=== PATIENT | male | born 1955 | race Caucasian/White ===

== ENCOUNTER → 2018-12-14 | Outpatient (CLI) | payer MEDICARE, OTHER ==
[~2018-12-14] MED LIST: AMLO5 PO; ASCO500 PO; Antivert25 MG PO; Aspir 8181 MG; BUPR100 PO; CENTRUM SILVER1 EAC2 PO; CHOL10002 PO; FISH1000 PO; HYDPAM25 PO; HYDR1TAB94 PO; LORA1 PO; Lamictal200 MG PO; MOMENI; OSTEO BI-FLEX1 EAC2 PO; PANT40 PO; SILD50TA PO; TRAZ50 PO
[2018-12-14 17:15] LABS: Campylobacter Sp Not Detected (NOT DETECT)
[2018-12-14 17:16] LABS: Adenovirus F 40/41 Not Detected (NOT DETECT); Astrovirus Not Detected (NOT DETECT); Cryptosporidium Not Detected (NOT DETECT); Cyclospora Cayetanensis Not Detected (NOT DETECT); E. Coli O157 Not Detected (NOT DETECT); Entamoeba Histolytica Not Detected (NOT DETECT); Enteroaggregative E. coli-EAEC Not Detected (NOT DETECT); Enteropathogenic E. coli-EPEC Not Detected (NOT DETECT); Enterotoxigenic E. coli-ETEC Not Detected (NOT DETECT); Giardia Lamblia Not Detected (NOT DETECT); Norovirus GI/GII Detected (NOT DETECT); Plesiomonas Shigelloides Not Detected (NOT DETECT); Rotavirus A Not Detected (NOT DETECT); Salmonella Sp Not Detected (NOT DETECT); Sapovirus Not Detected (NOT DETECT); Shiga Toxin-prod E. coli-STEC Not Detected (NOT DETECT); Shigella/Enteroin E. coli-EIEC Not Detected (NOT DETECT); Vibrio Cholerae Not Detected (NOT DETECT); Vibrio Sp Not Detected (NOT DETECT); Yersinia Enterocolitica Not Detected (NOT DETECT)
== END | disposition home or self-care (01) ==
LOC: LAB EV 12:00
PROVIDERS: Physician Assistant
DX: R19.7 Diarrhea, unspecified (principal)
CPT/HCPCS: 0097U

== ENCOUNTER 2019-12-01 18:46 | Emergency (ER) | payer MEDICARE, OTHER ==
[~2019-12-01] VITALS: Ht 177.8 cm; Wt 97.5 kg
[2019-12-01] MEDS ORDERED: METR500 PO (19:58)
[2019-12-01] MEDS ORDERED: CEFU250T47 PO (19:58)
== END 2019-12-01 20:15 | disposition home or self-care (01) ==
LOC: ER 18:46
DX: K57.32 Diverticulitis of large intestine without perforation or abscess without bleeding (principal); Z88.0 Allergy status to penicillin; Z88.2 Allergy status to sulfonamides; Z88.8 Allergy status to other drugs, medicaments and biological substances; Z91.048 Other nonmedicinal substance allergy status; Z79.899 Other long term (current) drug therapy; N18.3 Chronic kidney disease, stage 3 (moderate)
CPT/HCPCS: 74176; 80053; 85025; 99284-25; A9270-GY

== ENCOUNTER → 2020-03-14 | Outpatient (CLI) | payer MEDICARE, OTHER ==
[~2020-03-14] MED LIST changes: +CEFU250T47 PO; +METR500 PO
[2020-03-14 11:59] LABS: BASOPHILS ABSOLUTE AUTO 0.03 K/mm3 (0.00-0.23); BASOPHILS PERCENT AUTO 1 % (0-2); EOSINOPHILS ABSOLUTE AUTO 0.14 K/mm3 (0.00-0.68); EOSINOPHILS PERCENT AUTO 2 % (0-6); Hematocrit 41.4 % (37.0-53.0); Hemoglobin 13.7 g/dL (13.5-17.5); IMMATURE GRAN ABSOLUTE AUTO 0.01 K/mm3 (0.00-0.10); IMMATURE GRAN PERCENT AUTO 0 % (0-1); LYMPHOCYTES ABSOLUTE AUTO 2.09 K/mm3 (0.84-5.20); LYMPHOCYTES PERCENT AUTO 35 % (21-46); MONOCYTES ABSOLUTE AUTO 0.43 K/mm3 (0.16-1.47); MONOCYTES PERCENT AUTO 7 % (4-13); Mean Corpuscular HGB 30.3 pg (26.0-34.0); Mean Corpuscular HGB Conc 33.1 g/dL (31.5-36.5); Mean Corpuscular Volume 92 fL (80-100); Mean Platelet Volume 10.5 fL (9.1-12.4); NEUTROPHILS ABSOLUTE AUTO 3.34 K/mm3 (1.96-9.15); NEUTROPHILS PERCENT AUTO 55 % (41-73); Platelet Count 267 K/mm3 (150-400); RDW Coefficient Variation 13.3 % (11.7-14.2); RDW Standard Deviation 44.8 fL (35.1-46.3); Red Blood Cell Count 4.52 M/mm3 (4.30-5.90); White Blood Cell Count 6.04 K/mm3 (4.00-11.30)
[2020-03-14 12:16] LABS: Alanine Aminotransfer (ALT/SGP 30 U/L (12-78); Albumin, Blood 3.5 g/dL (3.4-5.0); Alk Phos 80 U/L (40-126); Anion Gap 8 mmol/L (6-16); Aspartate Aminotrans (AST/SGOT 19 U/L (12-37); Bilirubin, Total 0.7 mg/dL (0.1-1.0); Blood Urea Nitrogen 18 mg/dL (8-24); Bun/Creatinine Ratio 14.6 (12.0-20.0); CO2, Blood 27 mmol/L (21-32); Calcium, Blood 8.8 mg/dL (8.5-10.1); Chloride, Blood 105 mmol/L (98-108); Creatinine, Blood 1.23 mg/dL (0.60-1.20); Globulin, Blood 3.5 g/dL (2.2-4.0); Glomerular Filtration Rate 59 (60-); Glucose, Blood 88 mg/dL (70-99); Potassium, Blood 3.9 mmol/L (3.5-5.5); Sodium, Blood 140 mmol/L (136-145)
[2020-03-14 12:17] LABS: Troponin I <0.017 ng/mL (0.000-0.040)
== END | disposition home or self-care (01) ==
LOC: LAB EV 11:51 → LAB SHORT 11:51
PROVIDERS: Physician Assistant
DX: R07.89 Other chest pain (principal)
CPT/HCPCS: 80053; 84484; 85025

== ENCOUNTER 2020-03-20 15:36 | Emergency (ER) | payer OTHER, MEDICARE ==
[~2020-03-20] VITALS: Ht 177.8 cm; Wt 96.6 kg
[2020-03-20 16:17] LABS: BASOPHILS ABSOLUTE AUTO 0.04 K/mm3 (0.00-0.23); BASOPHILS PERCENT AUTO 1 % (0-2); EOSINOPHILS ABSOLUTE AUTO 0.15 K/mm3 (0.00-0.68); EOSINOPHILS PERCENT AUTO 2 % (0-6); Hemoglobin 14.3 g/dL (13.5-17.5); IMMATURE GRAN ABSOLUTE AUTO 0.03 K/mm3 (0.00-0.10); IMMATURE GRAN PERCENT AUTO 0 % (0-1); LYMPHOCYTES ABSOLUTE AUTO 2.16 K/mm3 (0.84-5.20); LYMPHOCYTES PERCENT AUTO 30 % (21-46); MONOCYTES ABSOLUTE AUTO 0.44 K/mm3 (0.16-1.47); MONOCYTES PERCENT AUTO 6 % (4-13); Mean Corpuscular HGB 30.1 pg (26.0-34.0); Mean Corpuscular HGB Conc 32.5 g/dL (31.5-36.5); Mean Corpuscular Volume 93 fL (80-100); Mean Platelet Volume 10.5 fL (9.1-12.4); NEUTROPHILS ABSOLUTE AUTO 4.46 K/mm3 (1.96-9.15); NEUTROPHILS PERCENT AUTO 61 % (41-73); Platelet Count 284 K/mm3 (150-400); RDW Coefficient Variation 13.1 % (11.7-14.2); RDW Standard Deviation 44.7 fL (35.1-46.3); Red Blood Cell Count 4.75 M/mm3 (4.30-5.90); White Blood Cell Count 7.28 K/mm3 (4.00-11.30)
[2020-03-20 16:48] LABS: Alanine Aminotransfer (ALT/SGP 29 U/L (12-78); Albumin, Blood 3.4 g/dL (3.4-5.0); Alk Phos 91 U/L (50-136); Anion Gap 7 mmol/L (6-16); Aspartate Aminotrans (AST/SGOT 14 U/L (12-37); Bilirubin, Total 0.5 mg/dL (0.1-1.0); Blood Urea Nitrogen 14 mg/dL (8-24); Bun/Creatinine Ratio 11.9 (12.0-20.0); CO2, Blood 26 mmol/L (21-32); Calcium, Blood 8.8 mg/dL (8.5-10.1); Chloride, Blood 111 mmol/L (98-108); Creatinine, Blood 1.18 mg/dL (0.60-1.20); Globulin, Blood 3.4 g/dL (2.2-4.0); Glomerular Filtration Rate >60 (60-); Glucose, Blood 98 mg/dL (70-99); Potassium, Blood 4.1 mmol/L (3.5-5.5); Sodium, Blood 144 mmol/L (136-145); Total Protein, Blood 6.8 g/dL (6.4-8.2)
[2020-03-20] MEDS ORDERED: CYCL0.05OP BOTHEYES (18:08)
[2020-03-20] MEDS ORDERED: AZELASTINE137 MCG/03 (18:09)
[2020-03-20] MEDS ORDERED: NORTRIPTYLINE H10 M2 PO (18:09)
== END 2020-03-20 21:06 | disposition short-term general hospital (02) ==
LOC: ER 15:36
PROVIDERS: Emergency Medicine
DX: H53.9 Unspecified visual disturbance (principal); N18.30 Chronic kidney disease, stage 3 unspecified; Z20.828 Contact with and (suspected) exposure to other viral communicable diseases; Z88.0 Allergy status to penicillin; Z88.1 Allergy status to other antibiotic agents; Z88.2 Allergy status to sulfonamides; Z91.09 Other allergy status, other than to drugs and biological substances; Z79.899 Other long term (current) drug therapy; Z87.891 Personal history of nicotine dependence
CPT/HCPCS: 36415; 80053; 85025; 93005; 93010; 99285-25; U0004

== ENCOUNTER 2020-03-25 10:47 | Emergency (ER) | payer OTHER, MEDICARE ==
[~2020-03-25] VITALS: Ht 177.8 cm; Wt 96.6 kg
[~2020-03-25 10:47] MED LIST changes: +AZELASTINE137 MCG/03; +CYCL0.05OP BOTHEYES; +NORTRIPTYLINE H10 M2 PO
[2020-03-25 11:45] LABS: BASOPHILS ABSOLUTE AUTO 0.02 K/mm3 (0.00-0.23); BASOPHILS PERCENT AUTO 0 % (0-2); EOSINOPHILS ABSOLUTE AUTO 0.15 K/mm3 (0.00-0.68); EOSINOPHILS PERCENT AUTO 2 % (0-6); Hematocrit 44.2 % (37.0-53.0); Hemoglobin 14.4 g/dL (13.5-17.5); IMMATURE GRAN ABSOLUTE AUTO 0.01 K/mm3 (0.00-0.10); IMMATURE GRAN PERCENT AUTO 0 % (0-1); LYMPHOCYTES ABSOLUTE AUTO 2.01 K/mm3 (0.84-5.20); LYMPHOCYTES PERCENT AUTO 31 % (21-46); MONOCYTES ABSOLUTE AUTO 0.42 K/mm3 (0.16-1.47); MONOCYTES PERCENT AUTO 6 % (4-13); Mean Corpuscular HGB 30.1 pg (26.0-34.0); Mean Corpuscular HGB Conc 32.6 g/dL (31.5-36.5); Mean Corpuscular Volume 93 fL (80-100); NEUTROPHILS ABSOLUTE AUTO 3.93 K/mm3 (1.96-9.15); NEUTROPHILS PERCENT AUTO 60 % (41-73); RDW Coefficient Variation 13.2 % (11.7-14.2); RDW Standard Deviation 44.5 fL (35.1-46.3); Red Blood Cell Count 4.78 M/mm3 (4.30-5.90); White Blood Cell Count 6.54 K/mm3 (4.00-11.30)
[2020-03-25 11:58] LABS: Mean Platelet Volume 10.7 fL (9.1-12.4)
[2020-03-25 12:00] LABS: Alanine Aminotransfer (ALT/SGP 30 U/L (12-78); Albumin, Blood 3.7 g/dL (3.4-5.0); Albumin/Globulin Ratio 1.1 (0.8-1.8); Alk Phos 94 U/L (50-136); Anion Gap 5 mmol/L (6-16); Aspartate Aminotrans (AST/SGOT 26 U/L (12-37); Bilirubin, Total 0.7 mg/dL (0.1-1.0); Blood Urea Nitrogen 18 mg/dL (8-24); Bun/Creatinine Ratio 14.3 (12.0-20.0); CO2, Blood 27 mmol/L (21-32); Chloride, Blood 109 mmol/L (98-108); Creatinine, Blood 1.26 mg/dL (0.60-1.20); Globulin, Blood 3.5 g/dL (2.2-4.0); Glomerular Filtration Rate >60 (60-); Glucose, Blood 88 mg/dL (70-99); International Normalized Ratio 0.93; Potassium, Blood 4.3 mmol/L (3.5-5.5); Sodium, Blood 141 mmol/L (136-145); Total Protein, Blood 7.2 g/dL (6.4-8.2)
[2020-03-25 12:26] LABS: Platelet Count 222 K/mm3 (150-400)
[2020-03-25 12:30] LABS: Source, Urine Clean Catch
[2020-03-25 12:38] LABS: Bilirubin, Urine Neg (Neg); Blood, Urine Neg (Neg); Glucose Qualitative, Urine Neg (Neg); Ketones, Urine Neg (Neg); Leukocyte Esterase, Urine Neg (Neg); Nitrite, Urine Neg (Neg); Protein, Urine Neg (Neg); Urobilinogen, Urine NORM (Normal)
[2020-03-25 12:39] LABS: Appearance, Urine Clear (Clear); Color, Urine Yellow (P-Yellow)
== END 2020-03-25 14:12 | disposition home or self-care (01) ==
LOC: ER 10:47
PROVIDERS: Emergency Medicine
DX: H53.8 Other visual disturbances (principal); R20.0 Anesthesia of skin; N18.30 Chronic kidney disease, stage 3 unspecified; Z88.0 Allergy status to penicillin; Z88.1 Allergy status to other antibiotic agents; Z88.2 Allergy status to sulfonamides; Z91.09 Other allergy status, other than to drugs and biological substances; Z79.899 Other long term (current) drug therapy; Z87.891 Personal history of nicotine dependence
CPT/HCPCS: 36415; 80053; 81003; 82947; 85025; 85610; 85730; 93005; 93010; 99284-25

== ENCOUNTER 2020-06-04 16:37 | Emergency (ER) | payer MEDICARE, OTHER ==
[~2020-06-04] VITALS: Ht 170.2 cm; Wt 98.0 kg
[2020-06-04 17:44] LABS: BASOPHILS ABSOLUTE AUTO 0.03 K/mm3 (0.00-0.23); BASOPHILS PERCENT AUTO 0 % (0-2); EOSINOPHILS ABSOLUTE AUTO 0.21 K/mm3 (0.00-0.68); EOSINOPHILS PERCENT AUTO 2 % (0-6); Hematocrit 38.8 % (37.0-53.0); Hemoglobin 12.7 g/dL (13.5-17.5); IMMATURE GRAN ABSOLUTE AUTO 0.02 K/mm3 (0.00-0.10); IMMATURE GRAN PERCENT AUTO 0 % (0-1); LYMPHOCYTES ABSOLUTE AUTO 2.37 K/mm3 (0.84-5.20); LYMPHOCYTES PERCENT AUTO 28 % (21-46); MONOCYTES PERCENT AUTO 7 % (4-13); Mean Corpuscular HGB 30.3 pg (26.0-34.0); Mean Corpuscular HGB Conc 32.7 g/dL (31.5-36.5); Mean Corpuscular Volume 93 fL (80-100); Mean Platelet Volume 10.5 fL (9.1-12.4); NEUTROPHILS ABSOLUTE AUTO 5.36 K/mm3 (1.96-9.15); NEUTROPHILS PERCENT AUTO 63 % (41-73); Platelet Count 273 K/mm3 (150-400); RDW Coefficient Variation 13.1 % (11.7-14.2); RDW Standard Deviation 43.8 fL (35.1-46.3); Red Blood Cell Count 4.19 M/mm3 (4.30-5.90); White Blood Cell Count 8.59 K/mm3 (4.00-11.30)
[2020-06-04 18:01] LABS: International Normalized Ratio 0.96; Prothrombin Time Results 10.3 Sec (9.7-11.5)
[2020-06-04 18:04] LABS: Albumin, Blood 3.4 g/dL (3.4-5.0); Albumin/Globulin Ratio 1.1 (0.8-1.8); Bilirubin, Total 0.7 mg/dL (0.1-1.0); Bun/Creatinine Ratio 15.5 (12.0-20.0); Calcium, Blood 8.9 mg/dL (8.5-10.1); Creatinine, Blood 1.29 mg/dL (0.60-1.20); Globulin, Blood 3.2 g/dL (2.2-4.0); Total Protein, Blood 6.6 g/dL (6.4-8.2)
== END 2020-06-04 19:53 | disposition home or self-care (01) ==
LOC: ER 16:37
PROVIDERS: Physician Assistant
DX: G45.9 Transient cerebral ischemic attack, unspecified (principal); N18.30 Chronic kidney disease, stage 3 unspecified; Z88.0 Allergy status to penicillin; Z88.2 Allergy status to sulfonamides; Z88.1 Allergy status to other antibiotic agents; Z91.09 Other allergy status, other than to drugs and biological substances; Z79.899 Other long term (current) drug therapy; Z87.891 Personal history of nicotine dependence
CPT/HCPCS: 70450; 80053; 82947; 85025; 85610; 93005; 93010; 96374; 99284-25; J1885

== ENCOUNTER 2023-06-14 10:17 | Observation (INO) | payer MEDICARE, OTHER ==
[~2023-06-14] VITALS: Ht 177.8 cm; Wt 97.5 kg
[~2023-06-14 10:17] MED LIST changes: +ALBU90OI INH; +C COMPLEX1000 M1 PO; +FAMO40 PO; +KRILL OIL500 MG PO; +LAMO100 PO; +NASACORT10.8 ML; +Tessalon200 MG PO; +VITAMIN D310 MC4 PO; +ZYRTEC10 M2 PO
[2023-06-14 10:41] LABS: BASOPHILS ABSOLUTE AUTO 0.04 K/mm3 (0.00-0.23); BASOPHILS PERCENT AUTO 1 % (0-2); EOSINOPHILS ABSOLUTE AUTO 0.22 K/mm3 (0.00-0.68); EOSINOPHILS PERCENT AUTO 3 % (0-6); Hematocrit 45.8 % (37.0-53.0); Hemoglobin 15.6 g/dL (13.5-17.5); IMMATURE GRAN ABSOLUTE AUTO 0.02 K/mm3 (0.00-0.10); IMMATURE GRAN PERCENT AUTO 0 % (0-1); LYMPHOCYTES ABSOLUTE AUTO 2.72 K/mm3 (0.84-5.20); LYMPHOCYTES PERCENT AUTO 38 % (21-46); MONOCYTES ABSOLUTE AUTO 0.66 K/mm3 (0.16-1.47); MONOCYTES PERCENT AUTO 9 % (4-13); Mean Corpuscular HGB 31.7 pg (26.0-34.0); Mean Corpuscular HGB Conc 34.1 g/dL (31.5-36.5); Mean Corpuscular Volume 93 fL (80-100); Mean Platelet Volume 10.5 fL (9.1-12.4); NEUTROPHILS ABSOLUTE AUTO 3.51 K/mm3 (1.96-9.15); NEUTROPHILS PERCENT AUTO 49 % (41-73); Platelet Count 273 K/mm3 (150-400); RDW Coefficient Variation 12.4 % (11.7-14.2); RDW Standard Deviation 42.7 fL (35.1-46.3); Red Blood Cell Count 4.92 M/mm3 (4.30-5.90); White Blood Cell Count 7.17 K/mm3 (4.00-11.30)
[2023-06-14 11:00] LABS: Albumin, Blood 3.6 g/dL (3.4-5.0); Albumin/Globulin Ratio 1.1 (0.8-1.8); Bilirubin, Total 0.8 mg/dL (0.1-1.0); Bun/Creatinine Ratio 10.5 (12.0-20.0); Calcium, Blood 8.9 mg/dL (8.5-10.1); Creatinine, Blood 1.52 mg/dL (0.60-1.20); Globulin, Blood 3.4 g/dL (2.2-4.0)
[2023-06-14 14:25] VITALS: BP 177/84
[2023-06-14] MEDS ORDERED: DULERA 100 MCG/13 GM INH (14:54)
[2023-06-14] MEDS ORDERED: KRILL OIL500 MG PO (14:56)
[2023-06-14 16:24] VITALS: BP 170/92
--- NOTE | 2023-06-14 16:30 | NUR ---
ADMISSION/SHIFT SUMMARY NOTE PT IS ALERT AND ORIENTED X 4, HE IS INDEPENDENT AT BASELINE AND REPORTS BEING VERY ACTIVE. SBP NOTED TO BE 170-180, NITRO PASTE GIVEN PER DR. PATTERSON ORDERS TO ASSIST IN DECREASING BP, WILL CONTINUE TO MONITOR. PT DENIED FEELINGS OF CHEST PAIN/PRESSURE UPON ARRIVAL, HE REPORTED FEELING MINIMAL LIGHTHEADEDNESS UPON AMBULATING FROM ED BED TO PCU BED. HE DENIES FEELINGS OF NAUSEA/VOMITTING AT THIS TIME. HE REPORTED SOB IS BASELINE FEELING. HIS COLTEN IS CURRENTLY AT BEDSIDE. PT ALSO REPORTED HX OF ANXIETY AND PTSD ALONG WITH DAILY ALCOHOL CONSUMPTION OF 1-2 BEVERAGES PER DAY. HE WAS EDUCATED BY THIS RN REGARDING ALCOHOL WITHDRAWL AND STATED THAT HE "DOESN'T DRINK ENOUGH TO WITHDRAWAL." HR IS SINUS RYTHM 60'S PER TELE MONITORING. CALL LIGHT W/IN REACH.
[2023-06-14 16:38] VITALS: BP 176/93
[2023-06-14 17:00] VITALS: BP 147/66
[2023-06-14 20:16] VITALS: BP 146/87
--- NOTE | 2023-06-14 21:00 | NUR ---
ATTEMPTED TO GET UPDATED MED LIST FROM PATIENT. PT DENIES TAKING ANY BP MEDS, CLAIMS HE MANAGES HIS BP VIA DIET AND EXERCISE. HE IS UNSURE WHAT HE USED TO TAKE BUT CLAIMS IT MADE HIM FEEL BAD. HE BELIEVES HIS CAROTID ARTERY IS CAUSING HIS S/SX. RECOMMEND CONSULT WITH CARDIOLOGY PER PT REQUEST. PT KEEPS LOG OF BP AND STATES IT HAS BEEN GOOD.
[2023-06-14] MEDS ORDERED: TRAZ50 PO (21:08)
[2023-06-14 22:40] VITALS: BP 175/97
[2023-06-15 03:26] VITALS: BP 150/93
[2023-06-15 04:23] LABS: Anion Gap 4 mmol/L (6-16); Blood Urea Nitrogen 18 mg/dL (8-24); Bun/Creatinine Ratio 13.7 (12.0-20.0); CHOL/HDL RATIO 3.9; CO2, Blood 24 mmol/L (21-32); Calcium, Blood 8.7 mg/dL (8.5-10.1); Chloride, Blood 111 mmol/L (98-108); Cholesterol 208 mg/dL (50-200); Creatinine, Blood 1.31 mg/dL (0.60-1.20); Glomerular Filtration Rate 59 (60-); Glucose, Blood 118 mg/dL (70-99); HDL Cholesterol 53 mg/dL (>39); LDL/HDL RATIO 2.5; Low Density Lipoprotein Chol 131 mg/dL (0-110); Potassium, Blood 4.2 mmol/L (3.5-5.5); Sodium, Blood 139 mmol/L (136-145); Triglycerides 121 mg/dL (30-160); Very Low Density Lipoprot Chol 24 mg/dL (6-32)
--- NOTE | 2023-06-15 05:23 | NUR ---
END OF SHIFT NOTE: PT A/OX4 AND IND IN ROOM. HIS HR HAS BEEN NSR/SB T/0 SHIFT. HE DENIES CHEST PAIN/PRESSURE. WHEN AWAKE HE IS ON RA WITH SPO2 >90% WHEN SLEEPING HE WEARS A CPAP. PT COMPAINED OF HEADACHE AND WAS MEDICATED PER JUL. HIS HOME MED REC WAS UPDATED TO REFLECT HIS CURRENT MEDICATIONS. PT CALLS APPROPRIATELY TO MAKE NEEDS KNOWN. CALL LIGHT W/IN REACH AND BED IN LOWEST POSITION.
[2023-06-15 08:55] VITALS: BP 168/79
[2023-06-15 09:48] VITALS: BP 144/82
[2023-06-15 10:59] VITALS: BP 140/75
[2023-06-15] MEDS ORDERED: AMLO10 PO (12:54)
[2023-06-15] MEDS ORDERED: PRAV20 PO (12:54)
[2023-06-15 14:21] VITALS: BP 160/75
--- NOTE | 2023-06-15 14:39 | NUR ---
ASSUMED CARE OF PT AT [address] WERE PLANNING A POSSIBLE STRESS TEST TODAY, BUT THE ATTENDING DOCTOR, DR TAYLOR, DECIDED PT COULD FOLLOW UP WITH HIS DOCTOR AN OUTPT FOR ONE. PT C.O HEADACHE TODAY, BUT DID NOT REQUIRE MEDICATIONS. SEE DOCUMENTED VS AND ASSESSMENT. PT A&OX4, INDEPENDENT IN ROOM. PT'S AT BEDSIDE FOR DISCHARGE TEACHING INCLUDING MEDICATION LIST, NEW MEDICATIONS, FOLLOW UP APPOINTMENTS, AND EDUCATION. ZIO PATCH APPLIED BY [facility] STAFF AND EDUCATION PROVIDED BY THEM. PT AND VERBALIZED UNDERSTANDING OF ALL TEACHING AND HAD NO FURTHER QUESTIONS OR CONCERNS AT THIS TIME. IV TO LAC REMOVED, SITE WNL. PT IS FULLY AMBULATORY AND CHOOSES TO WALK OUT OF THE HOSPITAL IN THE CARE OF HIS . ALL BELONGINGS SENT HOME WITH PT, NO FURTHER DISCHARGE NEEDS IDENTIFIED.
== END 2023-06-15 14:35 | disposition home or self-care (01) ==
LOC: ER 10:17 → PCU 10:18
PROVIDERS: Emergency Medicine; Student in an Organized Health Care Education/Training Program; ADMIT Internal Medicine
DX: I24.9 Acute ischemic heart disease, unspecified (principal); J45.909 Unspecified asthma, uncomplicated; F43.12 Post-traumatic stress disorder, chronic; I12.9 Hypertensive chronic kidney disease with stage 1 through stage 4 chronic kidney disease, or unspecified chronic kidney disease; N18.30 Chronic kidney disease, stage 3 unspecified; E78.5 Hyperlipidemia, unspecified; I35.8 Other nonrheumatic aortic valve disorders; G47.33 Obstructive sleep apnea (adult) (pediatric); Z88.0 Allergy status to penicillin; Z88.1 Allergy status to other antibiotic agents; Z88.5 Allergy status to narcotic agent; Z88.2 Allergy status to sulfonamides
CPT/HCPCS: 36415; 71045; 80048; 80053; 80061; 84484; 85025; 93005; 93010; 93246; 93306; 94640; 94660; 94664; 94762; 99285-25; A9270; G0378

== ENCOUNTER 2024-08-01 06:46 | Emergency (ER) | payer OTHER ==
[~2024-08-01] VITALS: Ht 177.8 cm; Wt 98.4 kg
[~2024-08-01 06:46] MED LIST changes: +AMLO10 PO; +DICLOFENAC SOD100 GM TOP; +DOC250 PO; +DULERA 100 MCG/13 GM INH; +OLME5TAB PO; +PRAV20 PO; +SENNA LAXATIVE8.6 MG PO
[2024-08-01 07:30] LABS: BASOPHILS ABSOLUTE AUTO 0.04 K/mm3 (0.00-0.23); BASOPHILS PERCENT AUTO 1 % (0-2); EOSINOPHILS PERCENT AUTO 5 % (0-6); Hematocrit 41.2 % (37.0-53.0); Hemoglobin 14.2 g/dL (13.5-17.5); IMMATURE GRAN ABSOLUTE AUTO 0.02 K/mm3 (0.00-0.10); IMMATURE GRAN PERCENT AUTO 0 % (0-1); LYMPHOCYTES ABSOLUTE AUTO 2.36 K/mm3 (0.84-5.20); LYMPHOCYTES PERCENT AUTO 40 % (21-46); MONOCYTES PERCENT AUTO 8 % (4-13); Mean Corpuscular HGB Conc 34.5 g/dL (31.5-36.5); Mean Corpuscular Volume 96 fL (80-100); Mean Platelet Volume 10.8 fL (9.1-12.4); NEUTROPHILS ABSOLUTE AUTO 2.76 K/mm3 (1.96-9.15); NEUTROPHILS PERCENT AUTO 46 % (41-73); Platelet Count 248 K/mm3 (150-400); RDW Coefficient Variation 12.7 % (11.7-14.2); RDW Standard Deviation 44.9 fL (35.1-46.3); White Blood Cell Count 5.98 K/mm3 (4.00-11.30)
[2024-08-01 07:34] LABS: Albumin, Blood 3.4 g/dL (3.4-5.0); Albumin/Globulin Ratio 1.1 (0.8-1.8); Bun/Creatinine Ratio 12.2 (12.0-20.0); Calcium, Blood 8.4 mg/dL (8.5-10.1); Creatinine, Blood 1.23 mg/dL (0.60-1.20); Globulin, Blood 3.1 g/dL (2.2-4.0); Potassium, Blood 4.3 mmol/L (3.5-5.5); Total Protein, Blood 6.5 g/dL (6.4-8.2)
[2024-08-01] MEDS ORDERED: CYCL10 PO (10:47)
[2024-08-01 11:32] VITALS: BP 140/85
== END 2024-08-01 11:33 | disposition home or self-care (01) ==
LOC: ER 06:46
PROVIDERS: Emergency Medicine
DX: M50.30 Other cervical disc degeneration, unspecified cervical region (principal); R07.9 Chest pain, unspecified; I12.9 Hypertensive chronic kidney disease with stage 1 through stage 4 chronic kidney disease, or unspecified chronic kidney disease; N18.30 Chronic kidney disease, stage 3 unspecified; J45.909 Unspecified asthma, uncomplicated; K21.9 Gastro-esophageal reflux disease without esophagitis; Z87.891 Personal history of nicotine dependence; Z88.0 Allergy status to penicillin; Z88.2 Allergy status to sulfonamides; Z16.23 Resistance to quinolones and fluoroquinolones; Z91.048 Other nonmedicinal substance allergy status; Z88.1 Allergy status to other antibiotic agents; Z88.9 Allergy status to unspecified drugs, medicaments and biological substances; Z79.1 Long term (current) use of non-steroidal anti-inflammatories (NSAID); Z79.899 Other long term (current) drug therapy; Z79.84 Long term (current) use of oral hypoglycemic drugs; Z79.621 Long term (current) use of calcineurin inhibitor
CPT/HCPCS: 70498; 71275; 74174; 80053; 84484; 85025; 93005; 93010; 99285-25; Q9967

== ENCOUNTER 2024-09-21 16:50 | Inpatient (IN) | payer OTHER, BC ==
[~2024-09-21] VITALS: Ht 175.3 cm; Wt 96.0 kg
[~2024-09-21 16:50] MED LIST changes: +CAVERJECT20 MCG INJ; +CYCL10 PO; +OXYC10TA19 PO; +SENN187 PO; +THERA-D2000 UNIT PO; +VITAMIN E180 MG PO; +osteo-biflex PO
[2024-09-21 17:32] LABS: BASOPHILS ABSOLUTE AUTO 0.03 K/mm3 (0.00-0.23); BASOPHILS PERCENT AUTO 0 % (0-2); EOSINOPHILS PERCENT AUTO 2 % (0-6); Hematocrit 37.3 % (37.0-53.0); Hemoglobin 12.7 g/dL (13.5-17.5); IMMATURE GRAN ABSOLUTE AUTO 0.03 K/mm3 (0.00-0.10); IMMATURE GRAN PERCENT AUTO 0 % (0-1); LYMPHOCYTES ABSOLUTE AUTO 2.41 K/mm3 (0.84-5.20); LYMPHOCYTES PERCENT AUTO 26 % (21-46); MONOCYTES ABSOLUTE AUTO 0.95 K/mm3 (0.16-1.47); MONOCYTES PERCENT AUTO 10 % (4-13); Mean Corpuscular HGB 33.1 pg (26.0-34.0); Mean Corpuscular Volume 97 fL (80-100); Mean Platelet Volume 10.4 fL (9.1-12.4); NEUTROPHILS ABSOLUTE AUTO 5.56 K/mm3 (1.96-9.15); NEUTROPHILS PERCENT AUTO 61 % (41-73); Platelet Count 250 K/mm3 (150-400); RDW Standard Deviation 43.1 fL (35.1-46.3); Red Blood Cell Count 3.84 M/mm3 (4.30-5.90); White Blood Cell Count 9.18 K/mm3 (4.00-11.30)
[2024-09-21 17:40] LABS: Albumin, Blood 3.3 g/dL (3.4-5.0); Albumin/Globulin Ratio 1.3 (0.8-1.8); Bilirubin, Total 0.7 mg/dL (0.1-1.0); Bun/Creatinine Ratio 11.9 (12.0-20.0); Calcium, Blood 8.9 mg/dL (8.5-10.1); Creatinine, Blood 1.09 mg/dL (0.60-1.20); Globulin, Blood 2.6 g/dL (2.2-4.0); Potassium, Blood 4.2 mmol/L (3.5-5.5); Total Protein, Blood 5.9 g/dL (6.4-8.2)
[2024-09-21] MEDS ORDERED: Dose Adjust by Pharmacy XX STA (18:46)
[2024-09-21] MEDS ORDERED: Heparin Sodium 5000 Units/ML 1ML MDV IV ONE (18:50)
[2024-09-21 18:51] LABS: Anti-Xa UFH, PHA Monitoring <0.10 IU/mL; International Normalized Ratio 0.95; Prothrombin Time Results 10.2 Sec (9.7-11.5)
[2024-09-21] MEDS ORDERED: Heparin Sodium,Porcine/0.5 NS 500 ML IV SCH (19:00)
[2024-09-21] MEDS ORDERED: Morphine Sulfate 4 MG/1 ML Injection IV PRN ×3 (19:20→21:55)
[2024-09-21] MEDS ORDERED: Ondansetron HCl 2 MG / ML 2ML Vial IV PRN (19:20)
[2024-09-21] MEDS ORDERED: Aspirin 325 MG Tab PO STA (19:20)
[2024-09-21] MEDS ORDERED: Clopidogrel Bisulfate 300 MG TABLET PO ONE (19:25)
[2024-09-21 20:31] VITALS: BP 136/106
[2024-09-21] MEDS ORDERED: Albuterol 2.5 MG/3 ML VIAL INH PRN (20:45)
[2024-09-21] MEDS ORDERED: Lactated Ringer's 1,000 ML IV SCH (21:00)
[2024-09-21] MEDS ORDERED: Famotidine 20 MG Tab PO SCH (21:00)
[2024-09-21] MEDS ORDERED: DOC250 PO (21:29)
[2024-09-21] MEDS ORDERED: Mometasone/Formoterol MDI 200/5 mcg 13 GM INH SCH (21:30)
[2024-09-21] MEDS ORDERED: SYMBICORT 160-4.6 GM INH (21:33)
[2024-09-21] MEDS ORDERED: TAMSULOSIN HCL0.4 M1 PO (21:35)
[2024-09-21] MEDS ORDERED: Pantoprazole Sodium 40 MG Tab PO SCH (21:45)
--- NOTE | 2024-09-21 22:46 | NUR ---
TRANSFER NOTE THIS RN RECEIVED REPORT FROM PAT VERA IN THE ER. PT TRANSFERRED TO PCU 7 AT 2030. PT AMBULATED FROM [facility]ADISON TO BED. REPORTED DIZZINESS WITH MOVEMENT THAT DID GO AWAY AFTER SITTING AT EDGE FOR A MINUTE. SR ON MONITOR. BP STABLE. ON RA WITH SPO2>92%. PT CONTINUES TO REPORT CHEST PAIN/PRESSURE THAT IS UNCHANGED AFTER IV MORPHINE. NO TELE CHANGES. TRENDING TROPONIN. HEP GTT INGUSING. CARDIOLOGY CONSULT ORDER IN. MD COPELAND NOTIFIED. MD WITH INCREASED DOSE/FREQUENCY FOR MORPHINE. GIVEN PER EMAR. PT REPORTS THAT PAIN IS INCREASED WITH EXERTION; PRESSURE RADIATES UP TO JAW AND LEFT ARM. PT USING URINAL AT BEDSIDE. LR INFUSING PER EMAR. BED IN LOWEST POSITION AND CALL LIGHT WITHIN REACH.
[2024-09-21 23:34] VITALS: BP 128/77
[2024-09-22] VITALS (11 sets, daily range): BP systolic 101–147; BP diastolic 59–110
[2024-09-22] MEDS ORDERED: Metoprolol Tartrate 25 MG Tab PO SCH
[2024-09-22] MEDS ORDERED: Nitroglycerin 0.4 MG SUBL SL PRN (00:20)
[2024-09-22] MEDS ORDERED: Clarify Drug Order XX ONE (02:15)
[2024-09-22 02:20] LABS: Bun/Creatinine Ratio 14.3 (12.0-20.0); Calcium, Blood 8.3 mg/dL (8.5-10.1); Creatinine, Blood 0.91 mg/dL (0.60-1.20); Potassium, Blood 4.1 mmol/L (3.5-5.5)
[2024-09-22 02:33] LABS: BASOPHILS ABSOLUTE AUTO 0.02 K/mm3 (0.00-0.23); BASOPHILS PERCENT AUTO 0 % (0-2); EOSINOPHILS ABSOLUTE AUTO 0.16 K/mm3 (0.00-0.68); EOSINOPHILS PERCENT AUTO 2 % (0-6); Hematocrit 39.2 % (37.0-53.0); Hemoglobin 13.1 g/dL (13.5-17.5); IMMATURE GRAN ABSOLUTE AUTO 0.01 K/mm3 (0.00-0.10); IMMATURE GRAN PERCENT AUTO 0 % (0-1); LYMPHOCYTES ABSOLUTE AUTO 1.99 K/mm3 (0.84-5.20); LYMPHOCYTES PERCENT AUTO 28 % (21-46); MONOCYTES ABSOLUTE AUTO 0.65 K/mm3 (0.16-1.47); MONOCYTES PERCENT AUTO 9 % (4-13); Mean Corpuscular HGB 32.3 pg (26.0-34.0); Mean Corpuscular HGB Conc 33.4 g/dL (31.5-36.5); Mean Corpuscular Volume 97 fL (80-100); Mean Platelet Volume 10.5 fL (9.1-12.4); NEUTROPHILS ABSOLUTE AUTO 4.38 K/mm3 (1.96-9.15); NEUTROPHILS PERCENT AUTO 61 % (41-73); Platelet Count 234 K/mm3 (150-400); Red Blood Cell Count 4.05 M/mm3 (4.30-5.90); White Blood Cell Count 7.21 K/mm3 (4.00-11.30)
[2024-09-22] MEDS ORDERED: Morphine Sulfate 4 MG/1 ML Injection IV PRN (04:15)
--- NOTE | 2024-09-22 04:46 | NUR ---
SHIFT SUMMARY SEE PREVIOUS NOTE NEURO INTACT. VITALS UNCHANGED. NOTED TO HAVE 8 BEAT RUN OF VTACH PER TRAINMASTER. ASYMPTOMATIC. PT CONTINUES TO HAVE CHEST PRESSURE THAT RADIATES TO NECK/ARM. DESCRIBING PAIN IN NECK A CRAMPING FEELING. RELIEVED BY MORPHINE. REFUSED NITRO D/T HEADACHE THAT IT GIVES HIM. MD AWARE AND PLACING ORDERS T/O THE NIGHT FOR PAIN RELIEF. PAIN NOTED TO BE 5-7/10. MORPHINE BRINGING IT DOWN TO 2 OR REPORTING THAT IT IS "BARELY NOTICEABLE". PT REPORTING THAT HE WAS ABLE TO GET SLEEP DURING THIS SHIFT. TRENDING TROPONINS PER MD ORDERS. CARDIOLOGY CONSULTED. PT HAS BEEN NPO SINCE MIDNIGHT. HEP GTT INFUSING PER EMAR. USING URINAL INDEPENDENTLY AT BEDSIDE. LR INFUSING PER EMAR. BED IN LOWEST POSITION AND CALL LIGHT WITHIN REACH. THIS RN WILL REPORT TO ONCOMING DAYSHIFT RN.
[2024-09-22] MEDS ORDERED: Heparin Sodium 1000 Units/ML 10ML MDV ONE ×2 (08:16→09:50)
[2024-09-22] MEDS ORDERED: Nitroglycerin 2 MG/20 ML BTL ONE (08:16)
[2024-09-22] MEDS ORDERED: NS 1,000 ML IV ONE ×4 (08:16→10:30)
[2024-09-22] MEDS ORDERED: NiCARdipine HCL 1,000 MCG/5 ML SYR ONE (08:16)
[2024-09-22] MEDS ORDERED: NS 250 ML IV ONE (08:16)
[2024-09-22] MEDS ORDERED: Atorvastatin 40 MG Tab PO SCH (09:00)
[2024-09-22] MEDS ORDERED: Midazolam HCl 1MG / ML 2ML Vial ONE (09:00)
[2024-09-22] MEDS ORDERED: Aspirin 81 MG Chew PO SCH (09:00)
[2024-09-22] MEDS ORDERED: FentaNYL Citrate 50 MCG/ML 2 ML Injection ONE (09:00)
[2024-09-22] MEDS ORDERED: Clopidogrel Bisulfate 75 MG Tab PO SCH (09:00)
[2024-09-22] MEDS ORDERED: prasugrel HCL 10 MG TABLET PO ONE (09:55)
[2024-09-22] MEDS ORDERED: NS 1,000 ML IV SCH (10:30)
--- NOTE | 2024-09-22 12:36 | NUR ---
Pt. is awake in bed and welcomes my visit. Pt. is pleasant. Spouse is at bedside. Facilitate a life review and listen with empathy and interest as Pt. verbalized the several recent hospital admissions he experienced. Seek to normalize the Pt. experience. Spouse verbalized concern that with Pts. present need for stents something had been missed on a recent cardiac visit to the ED. Listened with empathy and a caring presence. Considered matters of angelique and the local jewish. Prayed for the Pt. Pt. verbalized gratitude for the spiritual care visit.
[2024-09-22] MEDS ORDERED: Enoxaparin 40 MG/0.4 ML SYR SC SCH (14:00)
--- NOTE | 2024-09-22 14:08 | NUR ---
UPDATE PT BACK FROM [employer], SEE CATH NOTES. PT DENIES CP. TELEMETRY REPORTS 8 BEAT RUN OF VTACH. PT SYMPTOMATIC, STATES, "MY HEART FLUTTERED AND I WAS BREATHLESS". TR BAND ON R RADIAL SITE, NO BLEEDING, SLIGHT BRUISING OUTLINED WITH SKIN MARKER. STARTED DEFLATING APPROX 1345, 1 ML OUT. ARM BOARD IN PLACE. FAMILY IN ROOM. CALL LIGHT IN REACH.
[2024-09-22] MEDS ORDERED: Acetaminophen 325 MG TABLET PO PRN (15:45)
--- NOTE | 2024-09-22 16:59 | NUR ---
SHIFT SUMMARY: A/O X4, PLEASANT AND COOPERATIVE WITH CARE, ABLE TO COMMUNICATE NEEDS, W/HX OF PTSD AND BENEFITS FROM THUROUGH EXPLINATIONS OF ALL ASPECTS OF CARE, ANXIOUS AT BASELINE. NSTEMI, TROPONINS DID NOT PEAK BUT D/C'D AFTER 10,106 RESULT WHEN HE WENT TO GEOLOGICAL E LOGGER FOR AN ANGIO, TR BAND IN PLACE AND IN PROCESS OF RECOVERY, STENTS PLACED WITHOUT COMPLICATION PER THE REPORT, BRADYCARDIA WITH RUNS OF PVC, HAS HAD A RUN OF 8 BEATS OF V-TACH, NS INFUSING AT 75ML/HR PER EMAR, REFERRED FOR CARDIAC REHAB PHASE II. PRN 2L O2 FOR PATIENT COMFORT WITH SLEEP WHEN CPAP IS NOT IN USE, RT SET UP CPAP AT BEDSIDE FOR USE TONIGHT, HX OF NODULES ON HIS VOCAL CORDS AND COPD. TOLERATING A HEART HEALTHY DIET WELL, HX OF GERD, USES URINAL AT BEDSIDE, SBA X1 FOR CORD MANAGEMENT/INDEPENDENT.
--- NOTE | 2024-09-22 20:24 | NUR ---
ASSUMPTION OF CARE THIS RN ASSUMED CARE OF PATIENT AT 1900. PT A&O X4. ABLE TO MAKE NEEDS KNOWN. PT EXPRESSED ANXIETY ABOUT NEW MEDICATIONS AND CORDS/ANGIO SITE WHEN GETTING UP TO USE URINAL AT BEDSIDE. THIS RN ASSISTED WITH CONSOLIDATING LINES TO HELP PT TO MOVE WITHOUT BECOMING TANGLED IN CORDS. TR BAND REMOVED PER PROTOCOL. TEGADERM PLACED ON RT RADIAL SITE. STRONG PULSE NOTED. SOFT/NONTENDER. MILD SWELLING DISTAL TO SITE; PREVIOUS SHIFT MARKED OUTLINES WITH NO NOTED INCREASED SWELLING DURING BEDSIDE SHIFT REPORT. MILD BRUISING NOTED WELL. NO OOZING/BLEEDING NOTED. ARMBOARD IN PLACE. REINFORCED EDUCATION REGARDING RESTRICTIONS OF MOVEMENTS. ON RA WITH SPO2>92%. BP STABLE. SR ON MONITOR WITH HR 60-70'S. DENIES CHEST PAIN/PRESSURE. INDEPENDENT WITH ADL'S AN USING URINAL AT BEDSIDE. X2 PIV'S SALINE LOCKED. THIS RN SPOKE TO PROVIDER RIO ABOUT HOME DOSE OF TRAZADONE PER PT REQUEST; ORDERED PER MD AND GIVEN PER EMAR. BED IN LOWEST POSITION AND CALL LIGHT WITHIN REACH.
[2024-09-22] MEDS ORDERED: TraZODone HCl 50 MG Tab PO SCH (21:00)
[2024-09-23 01:00] VITALS: BP 121/70
[2024-09-23 04:57] VITALS: BP 127/78
--- NOTE | 2024-09-23 05:13 | NUR ---
SHIFT SUMMARY SEE PREVIOUS NOTE. NEURO INTACT. DENIED CHEST PAIN/PRESSURE T/O THIS SHIFT. PT REPORTED FEELING LIKE CPAP WAS NOT WORKING DURING THIS SHIFT. RT CHANGED SETTINGS SEVERAL TIMES AND ADDED BLEED IN BUT PT CONTINUED TO STATE THAT CPAP "WASN'T WORKING". STATED THAT HE COULD FEEL HIMSELF FEELING LIKE HE COULDN'T BREATHE WHEN HE WAS ABOUT TO FALL ASLEEP. NO DESATTING NOTED ON MONITOR. PT SLEPT WITHOUT CPAP/O2. REPORTED THAT HE GOT "PLENTY OF SLEEP" DURING THIS SHIFT. BP STABLE. SB/SR ON MONITOR. INDEPENDENT WITH ADL'S. RT RADIAL SITE FULLY RECOVERED, NO CHANGES SINCE PREVIOUS NOTE. ARMBOARD IN PLACE. DRESSING C/D/I. BED IN LOWEST POSITION AND CALL LIGHT WITHIN REACH. THIS RN WILL REPORT TO ONCOMING DAYSHIFT RN.
[2024-09-23 05:17] LABS: Hematocrit 36.1 % (37.0-53.0); Hemoglobin 12.2 g/dL (13.5-17.5); Mean Corpuscular HGB 32.8 pg (26.0-34.0); Mean Corpuscular HGB Conc 33.8 g/dL (31.5-36.5); Mean Corpuscular Volume 97 fL (80-100); Mean Platelet Volume 10.4 fL (9.1-12.4); Platelet Count 212 K/mm3 (150-400); RDW Standard Deviation 42.9 fL (35.1-46.3); Red Blood Cell Count 3.72 M/mm3 (4.30-5.90); White Blood Cell Count 5.56 K/mm3 (4.00-11.30)
[2024-09-23 05:40] LABS: Bun/Creatinine Ratio 11.4 (12.0-20.0); Calcium, Blood 8.5 mg/dL (8.5-10.1); Creatinine, Blood 1.05 mg/dL (0.60-1.20); Magnesium, Blood 2.2 mg/dL (1.6-2.4); Potassium, Blood 3.9 mmol/L (3.5-5.5)
[2024-09-23] MEDS ORDERED: Potassium Chloride 10 Meq Tablet SA PO ONE (07:00)
[2024-09-23 07:43] VITALS: BP 127/68
[2024-09-23] MEDS ORDERED: Lisinopril 10 MG Tab PO SCH (09:00)
[2024-09-23] MEDS ORDERED: Empagliflozin 10 MG TAB PO SCH (09:00)
[2024-09-23] MEDS ORDERED: Docusate Sodium 250 MG Cap PO ONE (09:00)
[2024-09-23] MEDS ORDERED: prasugrel HCL 10 MG TABLET PO SCH (09:00)
[2024-09-23] MEDS ORDERED: Aspirin 81 MG TabEC PO SCH (09:00)
[2024-09-23] MEDS ORDERED: Aspir 8181 MG PO (10:35)
[2024-09-23] MEDS ORDERED: ACET325 PO (10:35)
[2024-09-23] MEDS ORDERED: ATOR40TA PO (10:36)
[2024-09-23] MEDS ORDERED: JARDIANCE10 MG PO (10:37)
[2024-09-23] MEDS ORDERED: METO25 PO (10:39)
[2024-09-23] MEDS ORDERED: EFFIENT10 MG PO (10:40)
== END 2024-09-23 11:45 | disposition home or self-care (01) | DRG 321 ==
LOC: ER 16:50 → ERHOLD 16:51 → PCU 16:51
PROVIDERS: Emergency Medicine; Family Medicine; Internal Medicine Cardiovascular Disease; ADMIT Internal Medicine
PROC: 027135Z Dilation of Coronary Artery, Two Arteries with Two Drug-eluting Intraluminal Devices, Percutaneous Approach (ICD-10-PCS; principal; 2024-09-22)
PROC: B2111ZZ Fluoroscopy of Multiple Coronary Arteries using Low Osmolar Contrast (ICD-10-PCS; 2024-09-22)
PROC: 4A023N7 Measurement of Cardiac Sampling and Pressure, Left Heart, Percutaneous Approach (ICD-10-PCS; 2024-09-22)
DX: I21.4 Non-ST elevation (NSTEMI) myocardial infarction (principal); I50.31 Acute diastolic (congestive) heart failure; I13.0 Hypertensive heart and chronic kidney disease with heart failure and stage 1 through stage 4 chronic kidney disease, or unspecified chronic kidney disease; M19.90 Unspecified osteoarthritis, unspecified site; N18.30 Chronic kidney disease, stage 3 unspecified; F43.10 Post-traumatic stress disorder, unspecified; J45.909 Unspecified asthma, uncomplicated; K21.9 Gastro-esophageal reflux disease without esophagitis; F10.10 Alcohol abuse, uncomplicated; M62.830 Muscle spasm of back; E78.5 Hyperlipidemia, unspecified; I25.5 Ischemic cardiomyopathy; Z87.19 Personal history of other diseases of the digestive system; Z88.0 Allergy status to penicillin; Z88.2 Allergy status to sulfonamides; Z91.048 Other nonmedicinal substance allergy status; Z88.1 Allergy status to other antibiotic agents; Z88.8 Allergy status to other drugs, medicaments and biological substances; Z79.891 Long term (current) use of opiate analgesic; Z79.899 Other long term (current) drug therapy; Z79.51 Long term (current) use of inhaled steroids; Z87.891 Personal history of nicotine dependence; Z98.890 Other specified postprocedural states
CPT/HCPCS: 36415; 71045; 76937; 80048; 80053; 83735; 84484; 85025; 85027; 85347; 85379; 85520; 85610; 93005; 93010; 93458; 94660; 94762; 99152; 99153; 99285-25; A9270; C1725; C1769; C1874; C1887; C1894; C8929; C9600; G0378; J1644; J1650; J2250; J2270; J2405; J3010; J7030; J7050; J7120; Q9957; Q9967